=== PATIENT | male | born 1980 | race Caucasian/White ===

== ENCOUNTER 2020-04-17 18:58 | Emergency (ER) | payer SELFPAY ==
[2020-04-17 19:03] VITALS: BP 139/74; PULSE 82; RESP 16; TEMP 36.7; O2SAT 98
--- NOTE | 2020-04-17 19:06 | ED.DENTAL ---
HPI - Dental/Oral General Chief complaint: Dental/Oral Stated complaint: tooth pain Time Seen by Provider: 04/17/20 19:25 Source: patient and RN notes reviewed Mode of arrival: ambulatory Limitations: no limitations History of Present Illness HPI Narrative: This is a 39 years old male presented office for evaluation of dental pain for the last 4-day States, his teeth are rotten and he could not see a dentist because he does not have a job. Related Data Allergies Allergy/AdvReac Type Severity Reaction Status Date / Time Penicillins Allergy Mild Unknown Verified 04/17/20 19:09 Review of Systems Review of Systems: Narrative: CONSTITUTIONAL: Denies fever ENT: Denies difficulty swallowing. Reports bad teeth CARDIOVASCULAR: Denies chest pain RESPIRATORY: Denies dyspnea, wheezing, cough GASTROINTESTINAL: Denies abdominal pain, nausea, vomiting, diarrhea. SKIN: Denies rash MUSCULOSKELETAL: Denies acute back pain NEUROLOGIC: Denies lightheaded All other systems reviewed are negative, except as documented in HPI. [facility] Past Medical History Medical History Healthy adult male Surgical History Surgical History No history of previous surgery Social History Social History Smoking packs per day: 1 Smoking cigarettes per day: 20.0 Smoking status: Current every day smoker Comments At time of signature, I agree with nursing past medical, surgical, social and family history. There is no relevant family history pertinent to the presenting complaint. Exam Narrative: Exam Narrative: GENERAL: This is a well-nourished, well-developed patient, in no apparent distress. EYES: Sclera and conjunctivae normal ENT: External ears normal. Nose and lips normal. Airway patent. Multiple teeth are very carious and the gum is swollen and tender around it. There is no facial swelling, cervical or submandibular lymphadenopathy. CARDIOVASCULAR: Regular rate and rhythm without murmurs, gallops, or rubs. RESPIRATORY: Clear to auscultation. Breath sounds equal bilaterally. No wheezes, rales, or rhonchi. GASTROINTESTINAL: Abdomen soft, non-tender, nondistended. Bowel sounds are active. No hepato-splenomegaly, or palpable masses. No guarding. SKIN: warm, intact with no suspicious lesions or rash, good texture and turgor. NEURO: awake, alert, and oriented to person, place and time. There were no obvious focal neurologic abnormalities. Course Vital Signs Vital signs: Vital Signs Temperature 98.1 F 04/17/20 19:03 Pulse Rate 82 04/17/20 19:03 Respiratory Rate 16 04/17/20 19:03 Blood Pressure 139/74 04/17/20 19:03 Pulse Oximetry 98 04/17/20 19:03 Temperature 98.1 F 04/17/20 19:03 Pulse Rate 82 04/17/20 19:03 Respiratory Rate 16 04/17/20 19:03 Blood Pressure 139/74 04/17/20 19:03 Pulse Oximetry 98 04/17/20 19:03 MDM - Dental/Oral MDM Narrative Medical decision making narrative: Discharge instructions reviewed with patient, as well as provided in writing per nursing staff. The instructions also include specific and strict return/GO TO THE ER as well as f/u information. All questions have been answered, and the patient deny any further questions with discharge and discharge plan. Differential Diagnosis Differential diagnosis: Likely gingival abscess, dental caries, toothache, dental abscess, fracture of tooth and aphthous ulcer Critical Care Time Critical Care Time Critical Care Time: No Discharge Plan Discharge Clinical Impression: Dental caries Patient Disposition: Home, Self-Care Condition: Stable Instructions: Antibiotic Form, Toothache (ED) Additional Instructions: Take antibiotic until it's gone. Brushing teeth at least twice daily with gentle flossing. Avoid temperature extremes---when you eat. Salt gargle to rin
== END 2020-04-17 19:34 | disposition home or self-care (01) ==
PROVIDERS: Emergency Provider Nurse Practitioner
DX: K02.9 Dental caries, unspecified (principal); F17.210 Nicotine dependence, cigarettes, uncomplicated
CPT/HCPCS: 99213; G0463

== ENCOUNTER 2020-05-14 15:52 | Emergency (ER) | payer SELFPAY ==
[2020-05-14 16:06] VITALS: BP 134/85; PULSE 96; RESP 18; TEMP 37; O2SAT 99
--- NOTE | 2020-05-14 17:06 | ED.DENTAL ---
HPI - Dental/Oral General Chief complaint: Dental/Oral Stated complaint: tooth abscess Time Seen by Provider: 05/14/20 17:00 Source: patient Mode of arrival: ambulatory Limitations: no limitations History of Present Illness HPI Narrative: 39-year-old with no major medical problems here with complaints of dental pain and swelling since yesterday. Patient states that he has been taking [id number] medication. He denies any fever or chills he states that he has taken amoxicillin in the past. MD Complaint: tooth pain Location: Tooth # (20) Onset (ago): day(s) (1) Duration: constant Severity: moderate Relieving factors: NSAIDs Exacerbating factors: nothing Context: history of dental caries Related Data Allergies Allergy/AdvReac Type Severity Reaction Status Date / Time Penicillins Allergy Mild Unknown Verified 05/14/20 16:08 Review of Systems Review of Systems: All systems reviewed & are unremarkable except as noted in HPI and below Constitutional: Constitutional: Reports no additional constitutional complaints Eyes: Eyes: Reports as per HPI ENT: Reports system reviewed and no additional complaints, except as documented Cardiovascular: Cardiovascular: Reports no additional cardiovascular complaints Respiratory: Respiratory: Reports no additional respiratory complaints Gastrointestinal: Gastrointestinal: Reports no additional gastrointestinal complaints Musculoskeletal: Musculoskeletal: Reports no additional musculoskeletal complaints [facility] [place] Surgical History Surgical History No history of previous surgery Social History Social History Smoking packs per day: 1 Smoking cigarettes per day: 20.0 Smoking status: Current every day smoker Gender identity (if verbalized by the patient): Male Exam Narrative: Exam Narrative: GENERAL: Well-appearing, well-nourished, and in no acute distress. HEAD: Normocephalic, atraumatic. EYES: PERRLA and EOMI. ENT: Nares clear, no rhinorrhea or epistaxis. Mucous membranes moist. #20 dental caries and STS NECK: Supple. CHEST: Clear to auscultation. No respiratory distress. HEART: Regular rate and rhythm. No murmur heard. Normal peripheral pulses.. EXTREMITIES: Normal range of motion. No edema. SKIN: Warm, dry, no rash. NEURO: No focal deficits. Alert and oriented x3. PSYCH: Normal mood and affect. Course Vital Signs Vital signs: Vital Signs Temperature 37.0 C 05/14/20 16:06 Pulse Rate 96 05/14/20 16:06 Respiratory Rate 18 05/14/20 16:06 Blood Pressure 134/85 05/14/20 16:06 Pulse Oximetry 99 05/14/20 16:06 Temperature 37.0 C 05/14/20 16:06 Pulse Rate 96 05/14/20 16:06 Respiratory Rate 18 05/14/20 16:06 Blood Pressure 134/85 05/14/20 16:06 Pulse Oximetry 99 05/14/20 16:06 MDM - Dental/Oral MDM Narrative Medical decision making narrative: Inform patient that he needs to be on antibiotic and see a dentist. Patient states that the amoxicillin always works for him and he would prefer to get amoxicillin Discharge Plan Discharge Clinical Impression: Dental abscess Patient Disposition: Home, Self-Care Condition: Stable Instructions: Antibiotic Form, Dental Abscess (ED) Prescriptions: New amoxicillin 875 mg tablet 875 mg PO Q12H Qty: 20 RF: 0 ibuprofen 600 mg tablet 600 mg PO Q6H PRN (Reason: pain) Qty: 30 RF: 0 Follow-up/Referrals: PHYSICIAN,INFORMATION COORDINATOR [Primary Care Provider] - Stand Alone Forms: Work/School Release IP Time of Disposition: 17:10
[2020-05-14 18:46] VITALS: BP 132/68; PULSE 76; RESP 20; O2SAT 99
== END 2020-05-14 18:48 | disposition home or self-care (01) ==
LOC: ANHED 18:01
PROVIDERS: Emergency Provider Family Medicine
DX: K04.7 Periapical abscess without sinus (principal); F17.210 Nicotine dependence, cigarettes, uncomplicated
CPT/HCPCS: 99283

== ENCOUNTER 2024-07-05 20:29 | Emergency (ER) | payer OTHER, SELFPAY ==
--- NOTE | ~2024-07-05 | CT_ITS ---
CT of the Abdomen and Pelvis: Indication: Abdominal pain, hernia Technique: 2.5 mm axial scans were obtained through the abdomen and pelvis following intravenous adm inistration of 100 cc of Omnipaque 350. Dose reduction technique was used on this scan by utilizing a utomated exposure control and iterative reconstruction technique. The dose-length product (DLP) was 2 60.19 mGy-cm. Findings: Scans through the lung bases demonstrate 5 mm right lower lobe pulmonary nodule (axial galina ge 6).. The liver, spleen, pancreas, gallbladder, adrenals and kidneys are within normal limits. No evidence of aortic aneurysm. No lymphadenopathy. No bowel obstruction or bowel wall thickening. There is no evidence to suggest acute appendicitis. Images through the pelvis were performed. Urinary bladder unremarkable. No pelvic mass seen. No ascit es. Impression: No acute abnormality. 5 mm right lower lobe pulmonary nodule. According to Fleischner Society criteria, for a low-risk alberto ent, no further follow-up required. For a high-risk patient, consider 12 month follow-up CT. Reviewed, dictated and finalized at [facility]. Impression: No acute abnormality. 5 mm right lower lobe pulmonary nodule. According to Fleischner Society criteri a, for a low-risk patient, no further follow-up required. For a high-risk patie nt, consider 12 month follow-up CT.
[2024-07-05 20:34] VITALS: BP 139/99; PULSE 105; RESP 15; TEMP 36.8; O2SAT 100
[2024-07-05 23:30] VITALS: BP 118/88; PULSE 81; RESP 18; TEMP 37.1; O2SAT 100
[2024-07-06 00:19] VITALS: BP 138/87; PULSE 65; RESP 15; TEMP 36.6; O2SAT 100
[2024-07-06 00:55] LABS: Basophils Absolute Auto 0.1 K/mm3 (0.0-0.1); Basophils Percent Auto 0.9 % (0.2-1.2); Eosinophils Absolute Auto 0.1 K/mm3 (0-0.3); Eosinophils Percent Auto 0.5 % (0-4.4); Hematocrit 41.3 % (42.0-52.0); Hemoglobin 14.2 g/dL (14.0-18.0); Immature Granulocyte Absolute 0.03 K/mm3 (0.00-0.031); Immature Granulocyte Percent A 0.3 % (0-0.5); Lymphocytes Absolute Auto 2.67 K/mm3 (0.9-3.2); Lymphocytes Percent Auto 26.5 % (18.3-44.2); Mean Corpuscular HGB Conc 34.4 g/dl (32-36); Mean Corpuscular Hemoglobin 31.6 pg (26-34); Mean Platelet Volume 8.9 fl (7.4-10.4); Monocytes Absolute Auto 0.5 K/mm3 (0.1-0.6); Monocytes Percent Auto 4.5 % (2.6-8.5); Neutrophils Absolute Auto 6.8 K/mm3 (1.3-6.7); Neutrophils Percent Auto 67.3 % (45.5-73.1); Platelet Count Result 279 k/mm3 (150-375); Red Blood Count 4.49 M/mm3 (4.6-6.20); Red Cell Distribution Width 13.1 % (11.5-14.5); White Blood Count 10.1 K/mm3 (4.5-10.0)
[2024-07-06 01:05] LABS: Lipase 312 U/L (23-300)
[2024-07-06 01:06] LABS: Lactic Acid Reflex 0.8 mmol/L (0.7-2.0)
[2024-07-06 01:07] LABS: Alanine Aminotransferase 17 U/L (6-50); Albumin Level 4.2 g/dL (3.5-5.1); Alkaline Phosphatase 75 U/L (38-126); Anion Gap 9 mmol/L (4-12); Aspartate Amino Transferase 17 U/L (17-59); Bilirubin,Total 0.6 mg/dL (0.2-1.3); Blood Urea Nitrogen 7 mg/dL (9-20); Calcium 9.1 mg/dL (8.4-10.2); Carbon Dioxide 25 mmol/L (22-30); Chloride 105 mmol/L (98-107); Estimated CRCL calculation 118 ml/min; Estimated Glomerular Filt Rate > 60; Glucose 97 mg/dL (65-110); Potassium 3.9 mmol/L (3.4-5.0); Sodium 139 mmol/L (137-145)
--- NOTE | 2024-07-06 02:15 | ED.GENADULT ---
HPI - General Adult General Chief complaint: Unspecified Stated complaint: hernia Time Seen by Provider: 07/06/24 00:14 History of Present Illness HPI narrative: Patient 33-year-old gentleman presents emergency department with chief complaint of hernia in the right lower quadrant. The patient reports that at times he has an area that bulges out on his right lower quadrant medically whenever he was lifting heavy things. Patient states that it is reducible at this time reports that his pain is controlled currently the patient reports he does not have a primary care provider Related Data Allergies Allergy/AdvReac Type Severity Reaction Status Date / Time Penicillins Allergy Mild Unknown Verified 05/14/20 16:08 Review of Systems Review of Systems: A 10 system review of systems was completed on the patient and is negative except for what is stated in the HPI. Nursing and ancillary documentation was reviewed. [facility] Past Medical History Medical History (Updated 07/06/24 @ 02:19 by Burke Stover MD) Healthy adult male Surgical History Surgical History No history of previous surgery Social History Social History Smoking packs per day: 1 Smoking cigarettes per day: 20.0 Smoking status: Current every day smoker Gender identity (if verbalized by the patient): Male Exam Narrative: GENERAL: Well-appearing, well-nourished, and in no acute distress. HEAD: Normocephalic, atraumatic. EYES: PERRLA and EOMI. ENT: Nares clear, no rhinorrhea or epistaxis. Mucous membranes moist. NECK: Supple. CHEST: Clear to auscultation. No respiratory distress. HEART: Regular rate and rhythm. No murmur heard. Normal peripheral pulses. ABDOMEN: Soft, minimal tenderness in the right lower quadrant, nondistended, normal active bowel sounds. EXTREMITIES: Normal range of motion. No edema. SKIN: Warm, dry, no rash. NEURO: No focal deficits. Alert and oriented x3. PSYCH: Normal mood and affect. Course Vital Signs Vital signs: Vital Signs Temperature 36.8 C 07/05/24 20:34 Pulse Rate 105 H 07/05/24 20:34 Respiratory Rate 15 07/05/24 20:34 Blood Pressure 139/99 H 07/05/24 20:34 Pulse Oximetry 100 07/05/24 20:34 Oxygen Delivery Room Air 07/05/24 20:34 Temperature 36.6 C 07/06/24 00:19 Pulse Rate 65 07/06/24 00:19 Respiratory Rate 15 07/06/24 00:19 Blood Pressure 138/87 07/06/24 00:19 Pulse Oximetry 100 07/06/24 00:19 Oxygen Delivery Room Air 07/05/24 20:34 Medical Decision Making [facility] Narrative Medical decision making narrative: Differential diagnosis includes hernia, incarcerated hernia, intra-abdominal infection, appendicitis Laboratory studies were obtained the patient showed a CBC with white count of 10.1 electrolytes are within normal limits LFTs are normal lipase was 312 CT scan of the abdomen pelvis showed no acute abnormality Vital Signs Vital Signs: Vital Signs Temperature 36.8 C 07/05/24 20:34 Pulse Rate 105 H 07/05/24 20:34 Respiratory Rate 15 07/05/24 20:34 Blood Pressure 139/99 H 07/05/24 20:34 Pulse Oximetry 100 07/05/24 20:34 Oxygen Delivery Room Air 07/05/24 20:34 Temperature 36.6 C 07/06/24 00:19 Pulse Rate 65 07/06/24 00:19 Respiratory Rate 15 07/06/24 00:19 Blood Pressure 138/87 07/06/24 00:19 Pulse Oximetry 100 07/06/24 00:19 Oxygen Delivery Room Air 07/05/24 20:34 Lab Data 07/06/24 00:41 07/06/24 00:41 Labs: Lab Results 07/06/24 Range/Units 00:41 WBC 10.1 H (4.5-10.0) K/mm3 RBC 4.49 L (4.6-6.20) M/mm3 Hgb 14.2 (14.0-18.0) g/dL Hct 41.3 L (42.0-52.0) % MCV 92.0 (80-100) fl MCH 31.6 (26-34) pg MCHC 34.4 (32-36) g/dl RDW 13.1 (11.5-14.5) % Plt Count 279 (150-375) k/mm3 MPV 8.9 (7.4-10.4) fl Immature Gran % (Auto) 0.3 (0-0.5) % Neut % (Auto) 67.3 (45.5-73.1) % Lymph % (Auto) 26.5 (18.3-44.2) % Sebastian % (Auto) 4.5 (2.6-8.5) % Eos % (Auto) 0.5 (0-4.4) % Baso % (Auto) 0.9 (0.2-1.2) % Lymph # (Auto) 2.67 (0.9-3.2) K/mm3 Sebastian # (Auto) 0.5 (0.1-0.6) K/mm3 Eos # (Auto) 0.1 (0-0.3) K/mm3 Baso # (Auto) 0.1 (0.0-0.1) K/mm3 Abs Immat Gran (auto) 0.03 (0.00-0.031) K/mm3 Absolute Neuts (auto) 6.8 H (1.3-6.7) K/mm3 Absolute Nucleated RBC 0.000 (0.0-0.012) K/mm3 Nucleated RBC % 0.0 (0.0-0.2) % Sodium 139 (137-145) mmol/L Potassium 3.9 (3.4-5.0) mmol/L Chloride 105 (98-107) mmol/L Carbon Dioxide 25 (22-30) mmol/L Anion Gap 9 (4-12) mmol/L BUN 7 L (9-20) mg/dL Creatinine 0.70 (0.7-1.3) mg/dL Estim Creat Clear Calc 118 ml/min Estimated GFR > 60 (59 - ) Glucose 97 (65-110) mg/dL Lactic Acid 0.8 (0.7-2.0) mmol/L Calcium 9.1 (8.4-10.2) mg/dL Total Bilirubin 0.6 (0.2-1.3) mg/dL AST 17 (17-59) U/L ALT 17 (6-50) U/L Alkaline Phosphatase 75 (38-126) U/L Total Protein 7.0 (6.3-8.2) g/dL Albumin 4.2 (3.5-5.1) g/dL Lipase 312 H (23-300) U/L Discharge Plan Discharge Clinical Impression: Abdominal pain Abdominal hernia Qualifiers: Hernia type: unspecified Obstruction and gangrene presence: without obstruction or gangrene Recurrence: not specified as recurrent Qualified Code(s): K46.9 - Unspecified abdominal hernia without obstruction or gangrene Patient Disposition: Home, Self-Care Condition: Stable Instructions: Antibiotic Form, Ventral Hernia (ED) Prescriptions: No Action amoxicillin 875 mg tablet 875 mg PO Q12H Qty: 20 0RF ibuprofen 600 mg tablet 600 mg PO Q6H PRN (Reason: pain) Qty: 30 0RF Follow-up/Referrals: Indiana Swann MD [Physician] - Goyo Huerta MD [Physician] - PHYSICIAN,TOP AND TRIM WORKER [Primary Care Provider] - Stand Alone Forms: Work/School Release IP Time of Disposition: 02:19
[2024-07-06 02:33] VITALS: BP 132/74; PULSE 67; RESP 14; TEMP 36.5; O2SAT 99
== END 2024-07-06 02:34 | disposition home or self-care (01) ==
PROVIDERS: Emergency Provider Emergency Medicine
DX: K46.9 Unspecified abdominal hernia without obstruction or gangrene (principal)
CPT/HCPCS: 36415; 74177; 80053; 83605; 83690; 85025; 99284; Q9967